=== PATIENT | female | born 1995 | race Caucasian/White ===

== ENCOUNTER 2021-01-20 13:56 | Emergency (ER) | payer OTHER ==
[~2021-01-20] VITALS: Ht 167.6 cm; Wt 80.0 kg
[2021-01-20 13:57] VITALS: BP 132/66
--- NOTE | 2021-01-20 14:50 | REP ---
INDICATION: pain after lifting. COMPARISON: None. TECHNIQUE: Three views of the right shoulder are provided. FINDINGS: The right glenohumeral and acromioclavicular joints are normally aligned. Periarticular soft tissues are unremarkable. The visualized right hemithorax appears intact. IMPRESSION: Negative right shoulder radiographs. <Electronically signed by Nicanor Arrington > 01/20/21 [id number]
== END 2021-01-21 00:19 | disposition home or self-care (01) ==
LOC: M ED 13:56
DX: S29.012A Strain of muscle and tendon of back wall of thorax, initial encounter (principal); S46.911A Strain of unspecified muscle, fascia and tendon at shoulder and upper arm level, right arm, initial encounter; X50.9XXA Other and unspecified overexertion or strenuous movements or postures, initial encounter; Y92.89 Other specified places as the place of occurrence of the external cause; Y99.0 Civilian activity done for income or pay

== ENCOUNTER 2021-04-18 22:31 | Emergency (ER) | payer OTHER ==
[~2021-04-18] VITALS: Ht 167.6 cm; Wt 93.6 kg
[2021-04-18] MEDS ORDERED: ALBU83IN INH (22:45)
--- NOTE | 2021-04-19 00:38 | REPVR ---
PROCEDURE INFORMATION: Exam: CT Head Without Contrast Exam date and time: 04/18/2021 11:14 PM Age: 25 years old Clinical indication: Dizziness; Additional info: Syncopal episode TECHNIQUE: Imaging protocol: Computed tomography of the head without contrast. Radiation optimization: All CT scans at this facility use at least one of these dose optimization techniques: automated exposure control; mA and/or kV adjustment per patient size (includes targeted exams where dose is matched to clinical indication); or iterative reconstruction. COMPARISON: No relevant prior studies available. FINDINGS: Brain: No intracranial mass, mass effect or midline shift. No acute intracranial hemorrhage. No CT evidence of acute cortical infarct. Ventricles, cisterns, and sulci are normal in size for age. Paranasal sinuses: Imaged paranasal sinuses are normally aerated. Mastoid air cells: Mastoid air cells and middle ear structures are normally aerated. Orbital cavity: Imaged orbits are unremarkable. Bones/joints: No calvarial fracture or destructive process. Soft tissues: No focal extracranial soft tissue swelling. IMPRESSION: No acute or concerning focal intracranial abnormality. Electronically signed by: Don Jean On 04/19/2021 00:38:07 AM
[2021-04-19 04:15] LABS: EOS % 0.5 % (0.0-3.0); HEMATOCRIT 43.9 % (36.0-47.0); HEMOGLOBIN 13.8 g/dl (12.0-15.5); LYMPH # 1.1 10^3/uL (1.5-5.0); MEAN CORPUSCULAR HEMOGLOBIN 26.8 pg (27.0-33.0); MEAN CORPUSCULAR HGB CONC 31.4 g/dl (32.0-36.5); MEAN CORPUSCULAR VOLUME 85.4 fl (80.0-96.0); MONO # 0.6 10^3/uL (0.0-0.8); MONO % 14.4 % (2.0-8.0); NEUTROPHILS # 2.2 10^3/uL (1.5-8.5); NEUTROPHILS % 56.6 % (36.0-66.0); PLATELET COUNT, AUTOMATED 168 10^3/uL (150-450); RED BLOOD COUNT 5.14 10^6/uL (4.00-5.40)
[2021-04-19 04:38] LABS: CK-MB VALUE MASS < 1.0 NG/ML (<3.6); CPK CREATINE PHOSPHOKINASE 48 U/L (26-192); MB/CK RELATIVE INDEX 2.08 (< OR =4)
[2021-04-19 04:44] LABS: BLOOD UREA NITROGEN 9 MG/DL (7-18); CALCIUM LEVEL 8.6 MG/DL (8.5-10.1); CARBON DIOXIDE LEVEL 26 MEQ/L (21-32); CHLORIDE LEVEL 107 MEQ/L (98-107); GLOMERULAR FILTRATION RATE > 60.0 (>60); GLUCOSE, FASTING 109 MG/DL (70-100); HCG, SERUM QUALITATIVE NEGATIVE (NEGATIVE); POTASSIUM SERUM 3.7 MEQ/L (3.5-5.1); SODIUM LEVEL 141 MEQ/L (136-145); THYROID STIMULATING HORMONE 0.938 uIU/ML (0.358-3.740)
[2021-04-19] MEDS ORDERED: diphenhydrAMINE 50MG/ML VIAL (J1200) IV STA (06:36)
[2021-04-19] MEDS ORDERED: CLOBETASOL PROP 0.05% OINT 30 GM TOP STA (06:36)
[2021-04-19] MEDS ORDERED: METOCLOPRAMIDE INJ 10MG/2ML VIAL (J2765 PER 1) IV ONE (06:40)
[2021-04-19] MEDS ORDERED: NS 1,000 ML IV ONE (06:40)
[2021-04-19] MEDS ORDERED: ACETAMINOPHEN 500 MG TAB PO ONE (06:40)
[2021-04-19] MEDS ORDERED: ISOVUE-370 76% 100ML VIAL As Ordered ONE (06:41)
[2021-04-19 07:18] LABS: ABG BASE EXCESS -2.1 (-2.0-2.0); ABG HCO3 21.2 MEQ/L (22.0-26.0); ABG O2 SATURATION 98.2 % (95.0-99.0); ABG PARTIAL PRESSURE CO2 32.1 mmHg (35.0-45.0); ABG PARTIAL PRESSURE O2 109.4 mmHg (75.0-100.0); ABG STANDARD HCO3 22.8 MEQ/L (22.0-26.0); ABG TOTAL CO2 22.2 MEQ/L (22.0-29.0); ABG pH (ARTERIAL) 7.438 UNITS (7.350-7.450)
[2021-04-19 08:20] LABS: CK-MB VALUE MASS < 1.0 NG/ML (<3.6); CPK CREATINE PHOSPHOKINASE 34 U/L (26-192); MB/CK RELATIVE INDEX 2.94 (< OR =4)
[2021-04-19] MEDS ORDERED: dexameTHASONE 20MG/5ML VIAL (J1100 PER 1MG) IV ONE (09:30)
--- NOTE | 2021-04-19 09:37 | REP ---
INDICATION: chest pain, tachycardia COMPARISON: None. TECHNIQUE: Axial contrast enhanced images from the thoracic inlet to the upper abdomen using pulmonary embolus technique with multiplanar re-formations. 75 ml Isovue 370 intravenous contrast material administered without complication. This CT examination was performed using the following dose reduction techniques: Automated exposure control, adjustment of mA and/or kv according to the patient's size, and use of iterative reconstruction technique. FINDINGS: Enhancement of the aorta and pulmonary veins is more pronounced in the pulmonary arterial enhancement and evaluation for pulmonary embolus is limited. There is no obvious proximal pulmonary arterial thrombus identified although evaluation to the right upper lobe is most significantly limited. Aorta and heart/pericardium are normal. The bilateral lung aguero are well aerated and clear without consolidation pleural effusion or pneumothorax. Tracheobronchial tree is patent. No nodule or mass lesion is identified. No adenopathy noted. Surrounding musculoskeletal structures intact IMPRESSION: No definite evidence for pulmonary embolus. No acute mediastinal or pleural parenchymal process. <Electronically signed by Lincoln Elizondo > 04/19/21 0923
[2021-04-19] MEDS ORDERED: CLOB0.0526 TOP (09:52)
[2021-04-19] MEDS ORDERED: REGL10TA6 PO (09:52)
[2021-04-19 10:15] VITALS: BP 105/51
[2021-04-19 10:28] LABS: HEMOGLOBIN A1c 5.2 %
--- NOTE | 2021-04-19 19:27 | ECGEPIP ---
[facility] - ED Test Date: 2021-04-19 Pat Name: MARTIN JEAN Department: Room: - Gender: Female Meat St[employer]: Hiwot CARRILLO : 1995 Requested By: SCOTT Dee Order Number: [id number] Reading MD: Darlene Iniguez Measurements Intervals [place] Rate: 116 P: 21 CA: 124 QRS: 51 QRSD: 88 T: -2 QT: 338 QTc: 469 Interpretive Statements Sinus tachycardia No prior Electronically Signed on 04-19-2021 19:26:33 EST by Darlene Iniguez
== END 2021-04-19 10:40 | disposition home or self-care (01) ==
LOC: M ED 22:31
DX: R51.9 Headache, unspecified (principal); R53.83 Other fatigue; U07.1 COVID-19; R21 Rash and other nonspecific skin eruption; Z88.0 Allergy status to penicillin; Z88.1 Allergy status to other antibiotic agents
CPT/HCPCS: 36600; 70450; 71275; 80048; 82550; 82553; 82803; 83036; 84443; 84484; 84703; 85025; 85379; 87798; 93005; 93041; 94760; 96361; 96374; 96375; 99285; J1100; J1200; J2765; Q9967